=== PATIENT | female | born 1950 | race Two or more races ===

== ENCOUNTER → 2017-02-10 | Outpatient (CLI) | payer MEDICARE ==
[~2017-02-10] MED LIST: AMLO10TA2 PO; CONTRAST GIVEN MC PRN; CYCL5TAB PO; DAPA10TA PO; IOHEXOL 300 MG/ML 75 ML VIAL IV ONE; VENTOLIN HFA18 GM INH
--- NOTE | 2017-02-10 14:17 | RAD ---
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 Comparison: MRI brain 01/03/2006 Technique: Multiple noncontrast axial CT images of the head were performed from the skull base to the vertex. Findings: Postoperative changes from left suboccipital craniotomy are identified. There is subjacent encephalomalacia of the left cerebellum. Ventricles, sulci and basal cisterns are normal for patient's age. There is no mass, mass effect or midline shift. Nunez-white matter differentiation is preserved. Visualized orbits are normal. Paranasal sinuses and mastoid air cells are well aerated. No suspicious enhancement identified. Impression: Post surgical changes from left suboccipital craniotomy with adjacent left cerebellar encephalomalacia. No suspicious enhancing lesion identified. PQRS Compliance Statement: One or more of the following individualized dose reduction techniques were utilized for this examination: 1. Automated exposure control 2. Adjustment of the mA and/or kV according to patient size 3. Use of iterative reconstruction technique
== END | disposition home or self-care (01) ==
LOC: CT 11:17
PROVIDERS: ATTEND Family Medicine
DX: D49.6 Neoplasm of unspecified behavior of brain (principal); G93.89 Other specified disorders of brain
CPT/HCPCS: 70470; Q9967

== ENCOUNTER → 2017-10-31 | Outpatient (CLI) | payer MEDICARE | END | disposition home or self-care (01) | LOC: RAD 14:22 | DX: J98.11 Atelectasis (principal) | CPT/HCPCS: 71100 ==

== ENCOUNTER → 2018-10-02 | Outpatient (CLI) | payer MEDICARE ==
[~2018-10-02] MED LIST changes: -AMLO10TA2 PO; +AMLO10TA8 PO; -CONTRAST GIVEN MC PRN; +CONTRAST GIVEN. MC PRN; +IOHEXOL 240 MG/ML 50ML VIAL. PO ONE; +IOHEXOL 300 MG/ML 100ML VIAL. IV ONE; -IOHEXOL 300 MG/ML 75 ML VIAL IV ONE
--- NOTE | 2018-10-02 13:33 | RAD ---
EXAM: Abdomen and pelvis CT with intravenous contrast. HISTORY: Right lower quadrant pain. TECHNIQUE: Computed tomographic images of the abdomen and pelvis were obtained following the administration of 75 cc Omnipaque 300 intravenous contrast. Multiplanar reformatting was performed. *One or more of the following individualized dose reduction techniques were utilized for this examination: 1. Automated exposure control. 2. Adjustment of the mA and/or kV according to patient size. 3. Use of iterative reconstruction technique. COMPARISON: None. FINDINGS: Evaluation of the lower thorax demonstrates nonspecific groundglass and linear opacity within the lingula and right middle lobe likely due to atelectasis or scarring. No suspicious hepatic lesion is seen. The gallbladder is surgically absent. The pancreas, spleen, adrenal glands and right kidney are unremarkable. There is a tiny cyst within the lower pole of the left kidney. The bladder is empty. There is no evidence of bowel obstruction or abnormal bowel wall thickening. The uterus and adnexal regions are unremarkable. There is no lymphadenopathy. There are degenerative changes throughout the spine. There is lumbar hyperlordosis and grade 1 anterolisthesis of L5 on S1. IMPRESSION: 1. No acute abdominal or pelvic finding. 2. Suspected right middle lobe and lingular atelectasis or scarring. Electronically signed by: Kathy Lo MD (10/02/2018 1:29 PM) [place] [id number]
== END | disposition home or self-care (01) ==
LOC: CT 11:32
PROVIDERS: ATTEND Family Medicine
DX: R19.03 Right lower quadrant abdominal swelling, mass and lump (principal); N28.1 Cyst of kidney, acquired; I10 Essential (primary) hypertension
CPT/HCPCS: 74177; Q9966; Q9967